=== PATIENT | female | born 1995 | race Two or more races ===

== ENCOUNTER 2017-04-24 16:12 | Outpatient (CLI) | payer BC ==
[~2017-04-24] VITALS: Ht 175.3 cm; Wt 78.4 kg
[2017-04-24 16:28] VITALS: BP 120/58; PULSE 91; RESP 18
[2017-04-24 16:30] VITALS: Ht 175.3 cm; Wt 78.4 kg
--- NOTE | 2017-04-24 17:27 | RADRPT ---
PROCEDURE: Limited obstetric ultrasound CLINICAL INDICATION: Pain TECHNIQUE: Multiple transverse and longitudinal grayscale images of the pelvis were obtained wong sabdominally and transvaginally.. COMPARISON: same day FINDINGS: The cervix is closed with a length of 4.2 cm. There is a single viable intrauterine gestation. Cardiac activity is present with 158 beats per min [place]. There is a breech presentation. The placenta is anterior. There is no evidence for an abruption or placenta previa. MVP = 7.6 cm. RPTAT: AA IMPRESSION: Cervix length measures 4.2 cm. .Felipe Dalton MD, Date Time Electronically viewed and signed by .Felipe Dalton MD, on 04/24/2017 17:27 .S/
--- NOTE | 2017-04-24 17:27 | RADRPT ---
PROCEDURE: Limited obstetric ultrasound CLINICAL INDICATION: Pain TECHNIQUE: Multiple transverse and longitudinal grayscale images of the pelvis were obtained wong sabdominally and transvaginally.. COMPARISON: same day FINDINGS: The cervix is closed with a length of 4.2 cm. There is a single viable intrauterine gestation. Cardiac activity is present with 158 beats per min [place]. There is a breech presentation. The placenta is anterior. There is no evidence for an abruption or placenta previa. MVP = 7.6 cm. RPTAT: AA IMPRESSION: Cervix length measures 4.2 cm. .Felipe Dalton MD, Date Time Electronically viewed and signed by .Felipe Dalton MD, on 04/24/2017 17:27 .S/
--- NOTE | 2017-04-24 17:27 | RADRPT ---
PROCEDURE: Limited obstetric ultrasound CLINICAL INDICATION: Pain TECHNIQUE: Multiple transverse and longitudinal grayscale images of the pelvis were obtained wong sabdominally and transvaginally.. COMPARISON: same day FINDINGS: The cervix is closed with a length of 4.2 cm. There is a single viable intrauterine gestation. Cardiac activity is present with 158 beats per min [place]. There is a breech presentation. The placenta is anterior. There is no evidence for an abruption or placenta previa. MVP = 7.6 cm. RPTAT: AA IMPRESSION: Cervix length measures 4.2 cm. .Felipe Dalton MD, Date Time Electronically viewed and signed by .Felipe Dalton MD, on 04/24/2017 17:27 .S/
--- NOTE | 2017-04-24 18:25 | PN ---
Triage Information Date/Time Reason for visit: Uterine contractions Weeks of Gestation 26 /Para 1/0 Diabetes: none Hypertention: none Objective Vital Signs Date Time Temp Pulse Resp B/P Pulse Ox O2 Delivery O2 Flow Rate FiO2 04/24/17 16:28 97.7 91 18 120/58 Room Air Heart Rate: 140's Contractions: None Results/Medications Results 24 hrs Laboratory Tests Test 04/24/17 17:25 Urine Color YELLOW Urine Clarity SLIGHTLY CLOUDY A Urine pH 7.0 Urine Specific [place] 1.021 Urine Ketones NEGATIVE Urine Nitrite NEGATIVE Urine Bilirubin NEGATIVE Urine Urobilinogen NEGATIVE Urine Leukocyte Esterase 3+ H Urine Microscopic RBC 4 Urine Microscopic WBC 4 Urine Squamous Epithelial Cells FEW Urine Bacteria FEW A Urine Hemoglobin NEGATIVE Urine Glucose NEGATIVE Urine Total Protein NEGATIVE Disposition: Discharge Assessment/Plan Precautions discussed Results reviewed Questions answered MAKAYLA CID M.D. Apr 24, 2017 18:25
--- NOTE | 2017-04-24 18:30 | TRIAGE ---
OB Triage Datetime Report Generated by CPN: 04/24/2017 18:29 Datetime: 04/24/2017 17:40 Labor Evaluation Frequency: 0 Monitor Mode: External Pattern: Normal: <= 5 Contractions in 10 Minutes Resting Tone [place]: Relaxed Heart Rate FHR Baseline Rate: 145 Monitor Mode: External US Variability: Moderate 6-25 bpm Accelerations: 15X15 Decelerations: None Category: Category I Datetime: 04/24/2017 16:44 EGA: 24.5 Datetime: 04/24/2017 16:00 Stage of : OB Triage Time of Arrival: 04/24/2017 15:55 Arrived By: Ambulatory Arrived From: Home Movement: Present Time Contractions Began: 04/24/2017 14:00 Rupture of Membranes: Denies Vaginal Bleeding: None Vaginal Discharge: Denies Recent Sexual Intercouse: Denies Abdominal Trauma: Not Applicable Patient Complaints: Cramping Time Provider Notified: 04/24/2017 16:49 Provider Notified: Eshaghian Maternal Assessment Level of Consciousness: Fully Conscious DTR's/Clonus: DTRs 2+; No Clonus Headache: Denies Blurred Vision: No Respiratory Effort: Unlabored; Regular Rhythm; Equal Expansion Breath Sounds, Left: Clear and Equal Breath Sounds, Right: Clear and Equal Nausea/Vomiting: Denies RUQ Epigastric Pain: Denies Lower Extremities Edema: None Degree: None Upper Extremities Edema: None Degree: None Facial Edema: None Temperature Route: Axillary Fall Risk Assessment History of Falling: (0) No Secondary Diagnosis: (0) No Ambulatory Aid: (0) Bedrest/Nurse Assist IV Therapy: (0) No Gait: (0) Normal/Bedrest/Immobile Mental Status: (0) Oriented to Own Ability Fall Score: 0 Fall Risk Score Definition: No Risk: No action required Monitor Mode: External Heart Rate FHR Baseline Rate: 140 Monitor Mode: External US (Annotations: initial) Pain Assessment Pain Scale: 3 Pain Presence: Intermittent Pain Type: Cramping Datetime: 04/24/2017 15:55 Time of Arrival: 04/24/2017 16:00 Arrived By: Ambulatory Arrived From: Home Chief Complaint: cramping, pain level of 3 Movement: Present Contractions: Regular Time Contractions Began: 04/24/2017 14:00 Rupture of Membranes: Denies Vaginal Bleeding: None Vaginal Discharge: Denies Recent Sexual Intercouse: Yes Abdominal Trauma: Not Applicable Patient Complaints: Cramping Initial Plan: efm/ u/s
--- NOTE | 2017-04-24 18:34 | TRIAGE ---
OB Triage Datetime Report Generated by CPN: 04/24/2017 18:33 Datetime: 04/24/2017 16:44 EGA: 24.5 Datetime: 04/24/2017 16:00 Fall Score: 0 Fall Risk Score Definition: No Risk: No action required
== END 2017-04-24 18:41 | disposition home or self-care (01) ==
LOC: OBT 16:12 → L-D 16:15 → OBT 18:41
PROVIDERS: ATTEND Obstetrics & Gynecology
DX: O62.9 Abnormality of forces of labor, unspecified (principal); Z3A.26 26 weeks gestation of pregnancy
CPT/HCPCS: 76815; 76817; 81001; G0463